=== PATIENT | female | born 1965 | race Caucasian/White ===

== ENCOUNTER 2017-08-05 15:03 | Inpatient (IN) | payer SELFPAY ==
[2017-08-05] VITALS (10 sets, daily range): BP systolic 110–132; BP diastolic 64–90; PULSE 66–70; RESP 16; TEMP 97.5–98.2; O2SAT 100
[~2017-08-05] VITALS: Ht 160 cm; Wt 56.9 kg
[2017-08-05] MEDS ORDERED: IOHEXOL 350 MG/ML 10 ML VIAL (for RAD DIAG) IVCONTRAST ONE (15:04)
[2017-08-05] MEDS ORDERED: MIDAZOLAM HCL 5 MG/ML VIAL (1 ML) ONE (15:08)
[2017-08-05] MEDS ORDERED: ceFAZolin 2 GM PREMIX 50 ML ONE (15:11)
--- NOTE | 2017-08-05 15:23 | RADRPT ---
EXAM DATE/TIME: 08/05/2017 15:05 [facility] COMPARISON: No previous studies available for comparison. INDICATIONS : Trauma alert. Patient fell down a flight of stairs. MEDICAL HISTORY : Non-responsive. SURGICAL HISTORY : Non-responsive. ENCOUNTER: Initial ACUITY: 1 day PAIN SCORE: Non-responsive. LOCATION: Bilateral pelvis. FINDINGS: Small calcification noted near the right inferior pubic ramus may reflect a small avulsion fracture. Osseous structures are otherwise intact. Joint spaces are maintained. Sacral arches are intact. Soft tissues are unremarkable. CONCLUSION: 1. Questionable subtle avulsion fracture of the right inferior pubic ramus. Yung Gonzales MD on August 05, 2017 at 15:20 Board Certified Radiologist. This report was verified electronically.
--- NOTE | 2017-08-05 15:25 | RADRPT ---
EXAM DATE/TIME: 08/05/2017 15:05 [facility] COMPARISON: No previous studies available for comparison. INDICATIONS : Trauma alert. Patient fell down a flight of stairs. MEDICAL HISTORY : Non-responsive. SURGICAL HISTORY : Non-responsive. ENCOUNTER: Initial ACUITY: 1 day PAIN SCORE: Non-responsive. LOCATION: Bilateral chest FINDINGS: ETT with tip approximately 2 cm above the kaelyn. Lungs are clear without significant pneumothorax, l eft apical cap or effusion. There is slight prominence of the right peritracheal region. Cardio media stinal contours are otherwise unremarkable. Osseous structures are intact. CONCLUSION: 1. ETT approximately 2 cm above the kaelyn. 2. Slight prominence of the right peritracheal region. 3. Otherwise, no acute abnormality. Yung Gonzales MD on August 05, 2017 at 15:22 Board Certified Radiologist. This report was verified electronically.
--- NOTE | 2017-08-05 15:33 | PD ---
HPI Chief Complaint: Trauma (Alert) Time Seen by Provider: 15:17 Travel History International Travel<30 days: No Contact w/Intl Traveler<30days: No Traveled to known affect area: No History of Present Illness HPI The patient is a approximately 53-year-old female who presents to the emergency department as a trauma alert from [facility]. According to the paramedics the patient has a history of seizures, was drinking alcohol earlier today and had a seizure and subsequently fell down 5 stairs. When EMS arrived they stated the patient's GCS was approximately 12, she was combative, therefore , was intubated in the field. The patient was intubated using succinylcholine, etomidate, and was intubated with a 7-0 endotracheal tube. The patient received Versed in route by EMS prior to arrival for sedation. Upon arrival the patient's intubated, eyes closed, nonverbal, and sedated. She had obvious injury to the forehead with a laceration as well as blood in the nares bilaterally. No obvious chest wall deformity, abdominal deformity, or deformities to the extremity is. Complete neurologic exam was unable to be completed secondary to patient's current clinical status, with administration of paralytics and sedatives. [facility] Past Medical History Narrative Medical Seizures and alcohol use according to EMS Past Surgical History Narrative Surgical Unable to obtain Social History Alcohol Use: Yes (alcohol use per EMS) Tobacco Use: No (unable to obtain) Allergies-Medications (Allergen,Severity, Reaction): Coded Allergies: No Known Allergies (Unverified , 08/05/17) Review of Systems ROS Limitations: Clinical Condition, Intubated Except as stated in HPI: all other systems reviewed are Neg Neurologic: Positive: Change in Mentation, Seizures Psychiatric: Positive: Substance Abuse (alcohol use) Physical Exam Narrative GENERAL: Intubated approximately 53-year-old female with her eyes closed, nonverbal, and large laceration noted to the forehead. SKIN: Focused skin assessment warm/dry. HEAD: 12 cm T-shaped laceration to the forehead. No obvious skull fracture. EYES: Pupils equal and round. 3 mm bilateral and reactive. ENT: Blood in both nares. Endotracheal tube in place. NECK: Trachea midline. No JVD. Cervical collar in place. CARDIOVASCULAR: Regular rate and rhythm. No murmur appreciated. RESPIRATORY: No accessory muscle use. Bilateral breath sounds via bag valve ventilation. GASTROINTESTINAL: Abdomen soft, non-tender, nondistended. No tympany noted. MUSCULOSKELETAL: No obvious deformities. No clubbing. No cyanosis. No edema. NEUROLOGICAL: Eyes closed, nonverbal, sedated. Back: No step-off over the thoracic or lumbar vertebrae. PSYCHIATRIC: Unable to obtain. Data Data Last Documented VS Vital Signs Date Time Temp Pulse Resp B/P (MAP) Pulse Ox O2 Delivery O2 Flow Rate FiO2 08/05/17 15:34 100 100 08/05/17 15:05 Ventilator 08/05/17 15:05 15.00 Orders Orders Midazolam Inj (Versed Inj) (08/05/17 15:08) Cefazolin 2 Gm Premix (Ancef 2 Gm Premix (08/05/17 15:11) I-Stat Profile (08/05/17 15:05) Complete Blood Count With Diff (08/05/17 15:05) Prothrombin Time / Inr (Pt) (08/05/17 15:05) Act Partial Throm Time (Ptt) (08/05/17 15:05) Type And Screen (08/05/17 15:05) Alcohol (Ethanol) (08/05/17 15:05) Chest, Single Ap (08/05/17 15:05) Pelvis, Ap Only (Routine) (08/05/17 15:05) Ct Brain W/O Iv Contrast(Rout) (08/05/17 15:05) Ct Cerv Spine W/O Contrast (08/05/17 15:05) Ct Abd/Pel W Iv Contrast(Rout) (08/05/17 15:05) Ct Facial Bones W/O Iv Cont (08/05/17 15:05) Iv Access Insert/Monitor (08/05/17 15:05) Ecg Monitoring (08/05/17 15:05) Oximetry (08/05/17 15:05) Oxygen Administration (08/05/17 15:05) Cefazolin 2 Gm Premix (Ancef 2 Gm Premix (08/05/17 15:45) Slqa-Tly-Baubwz (Booster) Inj (Boostrix (08/05/17 15:45) Sodium Chlor 0.9% 1000 Ml Inj (Ns 1000 M (08/05/17 15:45) Lidocaine Pf 1% Inj (Xylocaine-Mpf 1% In (08/05/17 15:34) Admit Order (Ed Use Only) (08/05/17 15:34) Rocuronium Inj (Zemuron Inj) (08/05/17 15:45) Midazolam Inj (Versed Inj) (08/05/17 15:45) Iohexol 350 Inj (Omnipaque 350 Inj) (08/05/17 15:04) Labs Laboratory Tests Test 08/05/17 15:08 White Blood Count 8.7 TH/MM3 Red Blood Count 3.60 MIL/MM3 Hemoglobin 13.1 GM/DL Bedside Hemoglobin 12.6 G/DL Hematocrit 36.6 % Bedside Hematocrit 37.0 % Mean Corpuscular Volume 101.6 FL Mean Corpuscular Hemoglobin 36.5 PG Mean Corpuscular Hemoglobin Concent 35.9 % Red Cell Distribution Width 14.9 % Platelet Count 175 TH/MM3 Mean Platelet Volume 8.7 FL Neutrophils (%) (Auto) 55.8 % Lymphocytes (%) (Auto) 29.1 % Monocytes (%) (Auto) 9.7 % Eosinophils (%) (Auto) 4.4 % Basophils (%) (Auto) 1.0 % Neutrophils # (Auto) 4.9 TH/MM3 Lymphocytes # (Auto) 2.5 TH/MM3 Monocytes # (Auto) 0.8 TH/MM3 Eosinophils # (Auto) 0.4 TH/MM3 Basophils # (Auto) 0.1 TH/MM3 CBC Comment DIFF FINAL Differential Comment Prothrombin Time 9.9 SEC Prothromb Time International Ratio 1.0 RATIO Activated Partial Thromboplast Time 23.0 SEC Bedside Sodium 140 MMOL/L Bedside Potassium 4.0 MMOL/L Bedside Chloride 104 MMOL/L Bedside Blood Urea Nitrogen 9 MG/DL Bedside Creatinine 0.9 MG/DL Bedside Glucose 95 MG/DL Ethyl Alcohol Level 188 MG/DL MDM Medical Decision Making Medical Screen Exam Complete: Yes Emergency Medical Condition: Yes Medical Record Reviewed: Yes Interpretation(s) Laboratory Tests Test 08/05/17 15:08 Bedside Hemoglobin 12.6 G/DL Bedside Hematocrit 37.0 % Bedside Sodium 140 MMOL/L Bedside Potassium 4.0 MMOL/L Bedside Chloride 104 MMOL/L Bedside Blood Urea Nitrogen 9 MG/DL Bedside Creatinine 0.9 MG/DL Bedside Glucose 95 MG/DL CT the brain unremarkable CT cervical spine unremarkable CT abdomen and pelvis unremarkable CT facial bones reveals nasal fracture Chest x-ray unremarkable Pelvis x-ray reveals questionable inferior pubic rami fracture Differential Diagnosis Differential diagnoses includes closed head injury, seizure, postictal state, intracranial hemorrhage, skull fracture, facial fracture, cervical fracture, multisystem trauma, alcohol intoxication, substance abuse. Narrative Course ATLS protocol was followed. The patient's airway, breathing, circulation were intact. The patient was intubated in the field prior to arrival and was sedated with Versed. No further information was obtainable from the patient. 2 large-bore IVs were established, labs are drawn and sent, the patient was placed on cardiac telemetry monitoring and continuous pulse oximetry monitoring. Chest x-ray and pelvis x-ray were obtained. Endotracheal tube was withdrawn 1 cm and positions. The patient was log rolled off the backboard and the back was inspected. Tetanus shot was updated. The patient received Ancef intravenously. The patient was administered Versed as needed for sedation with 50 mg of rocuronium for CT. The laceration was repaired by the mid-level provider, please refer to the procedure note. The patient will be admitted to the intensive surgical care unit under the care of Dr. Perez. The patient will receive Cerebyx 1 g intravenously for seizures. Trauma team was called including Dr. Perez at 1411 Level I trauma was called at 1411 Physician Communication Physician Communication The patient will be admitted to the trauma surgeon, Dr. Perez, and intensive surgical care unit. Diagnosis Primary Impression: Closed head injury Qualified Codes: S09.90XA - Unspecified injury of head, initial encounter Additional Impression: Laceration of forehead Qualified Codes: S01.81XA - Laceration without foreign body of other part of head, initial encounter Admitting Information Admitting Physician Requests: Admit Condition: Serious Jay Wasserman MD Aug 05, 2017 15:33
[2017-08-05] MEDS ORDERED: LIDOCAINE HCL 1% PF 30 ML VIAL ONE (15:34)
[2017-08-05 15:37] LABS: PROTHROMBIN TIME - PATIENT 9.9 SEC (9.8-11.6)
[2017-08-05 15:38] LABS: AUTOMATED NEUTROPHIL # 4.9 TH/MM3 (1.8-7.7); BASOPHIL # 0.1 TH/MM3 (0-0.2); EOSINOPHIL # 0.4 TH/MM3 (0-0.4); EOSINOPHIL % 4.4 % (0.0-4.0); HEMATOCRIT 36.6 % (35.0-46.0); HEMOGLOBIN 13.1 GM/DL (11.6-15.3); LYMPH % 29.1 % (9.0-44.0); LYMPHOCYTE # 2.5 TH/MM3 (1.0-4.8); MEAN CELL VOLUME 101.6 FL (80.0-100.0); MEAN CORPUSCULAR HEMOGLOBIN 36.5 PG (27.0-34.0); MEAN CORPUSCULAR HGB CONC 35.9 % (32.0-36.0); MEAN PLATELET VOLUME 8.7 FL (7.0-11.0); MONO % 9.7 % (0.0-8.0); MONOCYTE # 0.8 TH/MM3 (0-0.9); NEUT % 55.8 % (16.0-70.0); PLATELET COUNT 175 TH/MM3 (150-450); RED CELL DISTRIBUTION WIDTH 14.9 % (11.6-17.2); WHITE BLOOD COUNT 8.7 TH/MM3 (4.0-11.0)
--- NOTE | 2017-08-05 15:40 | RADRPT ---
EXAM DATE/TIME: 08/05/2017 15:19 [facility] COMPARISON: No previous studies available for comparison. INDICATIONS : Trauma alert; fall with seizure-like activity. RADIATION DOSE: 56.35 CTDIvol (mGy) MEDICAL HISTORY : Non-responsive. SURGICAL HISTORY : Non-responsive. ENCOUNTER: Initial ACUITY: 1 day PAIN SCALE: Non-responsive LOCATION: cranial TECHNIQUE: Multiple contiguous axial images were obtained of the head. Using automated exposure control and adj ustment of the mA and/or kV according to patient size, radiation dose was kept as low as reasonably a chievable to obtain optimal diagnostic quality images. DICOM format image data is available electro nically for review and comparison. FINDINGS: CEREBRUM: The ventricles are normal for age. No evidence of midline shift, mass lesion, hemorrhage or acute in farction. No extra-axial fluid collections are seen. POSTERIOR FOSSA: The cerebellum and brainstem are intact. The 4th ventricle is midline. The cerebellopontine angle i s unremarkable. EXTRACRANIAL: The visualized portion of the orbits is intact. Bilateral maxillary sinus and ethmoid fluid/mucoperio steal thickening in this intubated patient. SKULL: The calvaria is intact. No evidence of skull fracture. CONCLUSION: 1. No acute intracranial normality. Yung Gonzales MD on August 05, 2017 at 15:35 Board Certified Radiologist. This report was verified electronically.
[2017-08-05] MEDS ORDERED: ETOMIDATE 20 MG/10 ML VIAL ONE (15:41)
[2017-08-05] MEDS ORDERED: DIPHTH/TETANUS/ACEL PERTUSSIS (BOOSTER) 0.5 ML VIAL/PFS IM ONE (15:45)
[2017-08-05] MEDS ORDERED: FOSPHENYTOIN SODIUM 500 MG PE/10 ML VIAL IV ONE (15:45)
[2017-08-05] MEDS ORDERED: SODIUM CHLOR 0.9% 1000 ML INJ 1,000 ML IV SCH ×2 (15:45→15:48)
[2017-08-05] MEDS ORDERED: ROCURONIUM INJ 50 MG/5 ML VIAL IV ONE (15:45)
[2017-08-05] MEDS ORDERED: ceFAZolin 2 GM PREMIX 50 ML IV ONE (15:45)
[2017-08-05] MEDS ORDERED: MIDAZOLAM HCL 5 MG/5 ML VIAL IV ONE (15:45)
[2017-08-05] MEDS ORDERED: FOSPHENYTOIN INJ 1,000 MGPE in SODIUM CHLORIDE 0.9% INJ 50 ML IV ONE (15:45)
--- NOTE | 2017-08-05 15:53 | RADRPT ---
EXAM DATE/TIME: 08/05/2017 15:19 [facility] COMPARISON: No previous studies available for comparison. INDICATIONS : Trauma alert; fall with seizure-like activity. RADIATION DOSE: 28.35 CTDIvol (mGy) MEDICAL HISTORY : Non-responsive. SURGICAL HISTORY : Non-responsive. ENCOUNTER: Initial ACUITY: 1 day PAIN SCORE: Non-responsive LOCATION: facial TECHNIQUE: Volumetric scanning of the facial bones was performed. Using automated exposure control and adjustme nt of the mA and/or kV according to patient size, radiation dose was kept as low as reasonably achiev able to obtain optimal diagnostic quality images. DICOM format image data is available electronicall y for review and comparison. FINDINGS: ORBITS: The orbital and infraorbital osseous structures are intact. The retroconal structures have a normal configuration. No radiopaque foreign bodies are seen. NASAL BONE: Comminuted nasal bone fracture extending along the anterior nasal spine. ZYGOMATIC ARCHES: Symmetric without evidence of fracture. SINUSES: Opacification of the ethmoid air cells. Nical [place] thickening of the macular sinuses bilaterally. Sphenoid sinuses and frontal sinuses are clear. NASAL CAVITY: Suspect fracture of the nasal bony septum.The lacrimal ducts are intact. SOFT TISSUES: No radiopaque foreign bodies seen. Laceration in the mid face region/inferior scalp. INTRACRANIAL: No intracranial air seen. CRIBIFORM PLATE: Grossly intact. CONCLUSION: 1. Comminuted nasal bone fracture extending along the anterior nasal spine with suspected fracture of the bony nasal septum. 2. Large anterior mid face/scalp laceration. Yung Gonzales MD on August 05, 2017 at 15:46 Board Certified Radiologist. This report was verified electronically.
--- NOTE | 2017-08-05 15:55 | RADRPT ---
EXAM DATE/TIME: 08/05/2017 15:22 [facility] COMPARISON: No previous studies available for comparison. INDICATIONS : Trauma alert; fall with seizure-like activity. RADIATION DOSE: 24.27 CTDIvol (mGy) MEDICAL HISTORY : Non-responsive. SURGICAL HISTORY : Non-responsive. ENCOUNTER: Initial ACUITY: 1 day PAIN SCALE: Non-responsive LOCATION: neck TECHNIQUE: Volumetric scanning of the cervical spine was performed. Multiplanar reconstructions in the sagittal, coronal and oblique axial planes were performed. Using automated exposure control and adjustment o f the mA and/or kV according to patient size, radiation dose was kept as low as reasonably achievable to obtain optimal diagnostic quality images. DICOM format image data is available electronically f or review and comparison. FINDINGS: Vertebral body heights are maintained. Osseous structures are intact without evidence for acute bony fracture. Dens is intact. Sagittal alignment is maintained. There is a normal C1-2 relationship. Face ts are normally aligned. There is no significant prevertebral soft tissue hematoma. No significant ce rvical adenopathy or gross mass. Degenerative spondylosis of the lower cervical spine with disc space and osteophyte formation most prominently at C5-7. Associated bony neural foraminal stenosis at thes e levels. There is a calcified nodule in the right thyroid lobe. Patient is intubated. Visualized vaughn g apices are clear without pneumothorax. CONCLUSION: 1. No acute fracture or subluxation. 2. Degenerative spondylosis of the lower cervical spine, most prominently at C5-7. Yung Gonzales MD on August 05, 2017 at 15:51 Board Certified Radiologist. This report was verified electronically.
[2017-08-05] MEDS ORDERED: Post-op Orders (for Pharmacy) XX ONE (16:00)
[2017-08-05] MEDS ORDERED: PANTOPRAZOLE SODIUM 40 MG VIAL IV PUSH SCH (16:00)
[2017-08-05] MEDS ORDERED: PROPOFOL 1000 MG/100 ML INJ 100 ML IV PRN (16:00)
[2017-08-05] MEDS ORDERED: ONDANSETRON HCL 4 MG/2 ML VIAL IV PUSH PRN ×2 (16:00→19:30)
[2017-08-05] MEDS ORDERED: SODIUM CHLORIDE 0.9% FLUSH 10 ML FLUSH IV FLUSH PRN ×2 (16:00→19:30)
[2017-08-05] MEDS ORDERED: NALOXONE HCL 0.4 MG/ML AMP IV PUSH PRN (16:00)
--- NOTE | 2017-08-05 16:01 | RADRPT ---
EXAM DATE/TIME: 08/05/2017 15:28 [facility] COMPARISON: No previous studies available for comparison. INDICATIONS : Trauma alert; fall with seizure-like activity. IV CONTRAST: 80 cc Omnipaque 350 (iohexol) IV ORAL CONTRAST: No oral contrast ingested. RADIATION DOSE: 28.35 CTDIvol (mGy) MEDICAL HISTORY : Non-responsive. SURGICAL HISTORY : Non-responsive. ENCOUNTER: Initial ACUITY: 1 day PAIN SCALE: Non-responsive LOCATION: lower quadrant TECHNIQUE: Volumetric scanning of the abdomen and pelvis was performed. Using automated exposure control and ad justment of the mA and/or kV according to patient size, radiation dose was kept as low as reasonably achievable to obtain optimal diagnostic quality images. DICOM format image data is available electro nically for review and comparison. FINDINGS: LOWER LUNGS: Minimal bibasilar opacities likely reflecting atelectasis. LIVER: Homogeneous density without lesion. There is no dilation of the biliary tree. No calcified gallston es. SPLEEN: Normal size without lesion. PANCREAS: Within normal limits. KIDNEYS: Normal in size and shape. There is no mass, stone or hydronephrosis. ADRENAL GLANDS: Within normal limits. VASCULAR: There is no aortic aneurysm. BOWEL/MESENTERY: Colon is completely decompressed which can accentuate the colon wall. There is slight asymmetrical co lonic wall prominence in the ascending colon near the hepatic flexure. There is also trace free fluid in the left lower quadrant adjacent the sigmoid colon. Bowel otherwise appears unremarkable. ABDOMINAL WALL: Small fat-containing anterior abdominal hernia. RETROPERITONEUM: There is no lymphadenopathy. BLADDER: No wall thickening or mass. REPRODUCTIVE: Within normal limits. INGUINAL: There is no lymphadenopathy or hernia. MUSCULOSKELETAL: Osseous structures appear intact without evidence for acute bony fracture. Mild degenerative changes of the lower lumbar spine. CONCLUSION: 1. Very trace free fluid in the left lower quadrant adjacent the sigmoid colon. 2. Otherwise, no definitive traumatic injury in the abdomen or pelvis. 3. There is slight asymmetry of the colonic wall in the ascending near the hepatic flexure. This is n onspecific given degree of colonic distention. Consider colonoscopy on an outpatient basis particular ly if patient has not had recent colonoscopy. Alternatively, repeat CT examination with oral contrast may be performed. Yung Gonzales MD on August 05, 2017 at 15:53 Board Certified Radiologist. This report was verified electronically.
--- NOTE | 2017-08-05 16:23 | PD ---
Physical Exam Date Seen by Provider: Aug 05, 2017 Time Seen by Provider: 16:20 Narrative Trauma alert that presents to the ED for evaluation of trauma. I was asked by trauma surgeon to repair a laceration to the head. Please refer to his note. Data Data Orders Orders Midazolam Inj (Versed Inj) (08/05/17 15:08) Cefazolin 2 Gm Premix (Ancef 2 Gm Premix (08/05/17 15:11) I-Stat Profile (08/05/17 15:05) Complete Blood Count With Diff (08/05/17 15:05) Prothrombin Time / Inr (Pt) (08/05/17 15:05) Act Partial Throm Time (Ptt) (08/05/17 15:05) Type And Screen (08/05/17 15:05) Alcohol (Ethanol) (08/05/17 15:05) Chest, Single Ap (08/05/17 15:05) Pelvis, Ap Only (Routine) (08/05/17 15:05) Ct Brain W/O Iv Contrast(Rout) (08/05/17 15:05) Ct Cerv Spine W/O Contrast (08/05/17 15:05) Ct Abd/Pel W Iv Contrast(Rout) (08/05/17 15:05) Ct Facial Bones W/O Iv Cont (08/05/17 15:05) Iv Access Insert/Monitor (08/05/17 15:05) Ecg Monitoring (08/05/17 15:05) Oximetry (08/05/17 15:05) Oxygen Administration (08/05/17 15:05) Cefazolin 2 Gm Premix (Ancef 2 Gm Premix (08/05/17 15:45) Zyus-Tnk-Kcxrjq (Booster) Inj (Boostrix (08/05/17 15:45) Sodium Chlor 0.9% 1000 Ml Inj (Ns 1000 M (08/05/17 15:45) Lidocaine Pf 1% Inj (Xylocaine-Mpf 1% In (08/05/17 15:34) Admit Order (Ed Use Only) (08/05/17 15:34) Rocuronium Inj (Zemuron Inj) (08/05/17 15:45) Midazolam Inj (Versed Inj) (08/05/17 15:45) Iohexol 350 Inj (Omnipaque 350 Inj) (08/05/17 15:04) Labs Laboratory Tests Test 08/05/17 15:08 White Blood Count 8.7 TH/MM3 Red Blood Count 3.60 MIL/MM3 Hemoglobin 13.1 GM/DL Bedside Hemoglobin 12.6 G/DL Hematocrit 36.6 % Bedside Hematocrit 37.0 % Mean Corpuscular Volume 101.6 FL Mean Corpuscular Hemoglobin 36.5 PG Mean Corpuscular Hemoglobin Concent 35.9 % Red Cell Distribution Width 14.9 % Platelet Count 175 TH/MM3 Mean Platelet Volume 8.7 FL Neutrophils (%) (Auto) 55.8 % Lymphocytes (%) (Auto) 29.1 % Monocytes (%) (Auto) 9.7 % Eosinophils (%) (Auto) 4.4 % Basophils (%) (Auto) 1.0 % Neutrophils # (Auto) 4.9 TH/MM3 Lymphocytes # (Auto) 2.5 TH/MM3 Monocytes # (Auto) 0.8 TH/MM3 Eosinophils # (Auto) 0.4 TH/MM3 Basophils # (Auto) 0.1 TH/MM3 CBC Comment DIFF FINAL Differential Comment Prothrombin Time 9.9 SEC Prothromb Time International Ratio 1.0 RATIO Activated Partial Thromboplast Time 23.0 SEC Bedside Sodium 140 MMOL/L Bedside Potassium 4.0 MMOL/L Bedside Chloride 104 MMOL/L Bedside Blood Urea Nitrogen 9 MG/DL Bedside Creatinine 0.9 MG/DL Bedside Glucose 95 MG/DL Ethyl Alcohol Level 188 MG/DL [facility] Medical Record Reviewed: Yes Supervised Visit with KATRIN: No Procedures Procedure Narrative LACERATION LOCATION: forehead LENGTH: 10 cm T shaped NUMBER OF STITCHES/ETHAN: 30 sutures REPAIR: The area of the laceration was prepped with Betadine and sterilely draped. The laceration was infiltrated with 1% Xylocaine. The wound was copiously irrigated and explored without evidence of foreign body, tendon injury or neurovascular injury. The wound was closed using 4-0 Prolene. This was a 1 layer repair. A sterile dressing was applied. The patient was advised to keep the dressing clean and dry. Patient tolerated the procedure well. LACERATION LOCATION: nose LENGTH: 1 cm NUMBER OF STITCHES/ETHAN: 4 sutures REPAIR: The area of the laceration was prepped with Betadine and sterilely draped. The laceration was infiltrated with 1% Xylocaine. The wound was copiously irrigated and explored without evidence of foreign body, tendon injury or neurovascular injury. The wound was closed using 4-0 Prolene. This was a 1 layer repair. A sterile dressing was applied. The patient was advised to keep the dressing clean and dry. Patient tolerated the procedure well. Diagnosis Primary Impression: Closed head injury Qualified Codes: S09.90XA - Unspecified injury of head, initial encounter Additional Impression: Laceration of forehead Qualified Codes: S01.81XA - Laceration without foreign body of other part of head, initial encounter Condition: Serious Michael Andrews Aug 05, 2017 16:22
--- NOTE | 2017-08-05 16:42 | MH ---
cc: RUTH GO MD DATE OF ADMISSION 08/05/2017 ADMISSION DIAGNOSIS Fall, head injury, seizures. HISTORY OF PRESENT ILLNESS This 53-year-old female is being transferred from [facility] to . Apparently, the patient seized and then fell about five steps, hit her forehead. On the scene, she was unresponsive and her Anthony coma scale came up some, but I am not sure about actual numerical value of it. One way or the other, the patient was intubated and ventilated in the field and arrives here on a spinal board with C-collar in place ventilated. PAST MEDICAL HISTORY Known is that of seizures, according to the medics. PAST SURGICAL HISTORY Unknown MEDICATIONS Unknown ALLERGIES Unknown SOCIAL HISTORY Medics state that her friend confirmed that she was drunk at the time of the fall. PHYSICAL EXAMINATION GENERAL: A 53-year-old female. HEENT: Normocephalic. Trauma to the head consisting of a T-shaped laceration over the forehead with slightly elevated skin flaps, but skull underneath appears to be intact. No hemotympanum on either side, however, there is blood in the left ear running from the head down. Nares are full of blood. Pupils are equal, poorly reactive. Extraocular muscles cannot be tested. Oral cavity is intact. No injuries. Tongue is intact. NECK: C-collar is in place. Bilateral carotid pulses. No bruits. No signs of trauma to the neck on external exam. CHEST: Bilateral breath sounds. As above-noted, the patient is fully intubated. HEART: Regular rhythm. Hemodynamically, she is stable. Pressure is 140/90. ABDOMEN: Appears to be soft. Active bowel sounds. No rebound or guarding. No masses. No signs of trauma to the abdomen. PELVIS: No signs of trauma to the pubis Pelvis appears to be stable. Pubic film reveals some sort of maybe deformity of the pubis, but I cannot correlate that clinically in any way. EXTREMITIES: The patient has bilateral palpable femoral, popliteal, dorsalis pedis and posterior tibial pulses. Bilateral brachial, ulnar and radial pulses. She has blood over her hands, but I believe this is from her face basically coming down. BACK: The patient is log-rolled to her back. No signs of trauma to the back. NEUROLOGIC: The patient is now intubated, ventilated. On arrival, she was moving all four extremities and, in order to perform CAT scan, was given vercuronium and Versed. Exam at this point is T5. The patient was taken to the CT scan for additional studies after plain films were performed. Endotracheal tube position was readjusted. The patient was resuscitated according to trauma principals. The forehead laceration was repaired by the emergency room PA and the patient was then taken to the ICU for further care. In addition, the patient was given Cerebyx in the emergency room and we will continue on this in the ICU. Appropriate services are consulted. Ruth RAMÍREZ /3:43 PM /4:27 PM
[2017-08-05] MEDS ORDERED: PROPOFOL 500 MG/50 ML INJ 50 ML ONE (16:55)
[2017-08-05] MEDS ORDERED: RASS Change Order XX ONE (17:15)
[2017-08-05] MEDS ORDERED: PROPOFOL 1000 MG/100 ML IV PRN (17:15)
--- NOTE | 2017-08-05 18:50 | PD.CONS ---
[facility] Service Critical Care Medicine Consult Requested By Dr. Perez Reason for Consult Critical care medicine management Primary Care Physician Unknown History of Present Illness This is a 53-year-old female. Date of admission 08/05/2017. Date of consultation 08/05/2017. Past medical history is unknown. Patient is a transfer as a trauma from [facility]. Per records and review of traumas H&P, patient had a seizure and fell down flight of 5 steps. She had a laceration to her forehead. She was confused and was emergently intubated in the field after receiving a lidocaine drip, 30 mg etomidate, 60 mg succinylcholine and 14 mg of midazolam. She was transported to [facility] ED for further evaluation and treatment. Pertinent imaging CT brain -bilateral maxillary sinusitis left ethmoid and frontal fluid levels Maxillofacial -comminuted nasal bone fracture extending along the anterior spine. Fracture of the bony nasal septum. CT C-spine -degenerative spondylosis C5 through C7 CT abdomen/pelvis -6 tiny left lower quadrant ascites. Abnormality at the hepatic flexure anteriorly. Recommended outpatient colonoscopy or CT with abdomen and pelvis with contrast Pelvis -possible pubic ramus fracture/right inferior Chest x-ray -no pneumothorax. Patient was loaded with fosphenytoin 1 g. Laboratories revealed elevated MCV only. Alcohol level was 188. Received DTaP 0.5 mg IM 1. Sutures to the forehead in T formation and nasal bridge were done by PA in the ED. Review of Systems ROS Limitations: Intoxication, Intubated Past Family Social History Allergies: Coded Allergies: No Known Allergies (Unverified , 08/05/17) Past Medical History Unknown Past Surgical History Unknown Reported Medications Unknown Active Ordered Medications Reviewed in EMR Family History Unknown Social History Alcohol is in her system. Unknown tobacco or illicit drug use. Physical Exam Vital Signs Vital Signs Date Time Temp Pulse Resp B/P (MAP) Pulse Ox O2 Delivery O2 Flow Rate FiO2 08/05/17 18:29 100 50 08/05/17 16:00 97.5 66 16 132/90 (104) 100 08/05/17 15:34 100 100 08/05/17 15:15 100 100 08/05/17 15:05 100 Ventilator 100 08/05/17 15:05 100 15.00 100 Physical Exam GENERAL: 53-year-old female currently orotracheally intubated with OG tube SKIN: Warm and dry. Lacerations and tissue to afford sutured along with nasal bridge. T-shaped laceration to forehead currently sutured HEAD: Normocephalic. EYES: Pupils equal and round about 4 mm bilaterally and reactive no scleral icterus. No injection or drainage. ENT: Drying blood in left external ear canal. Positive blood in nares bilaterally. Not actively bleeding. Orotracheally intubated with OG tube in place NECK: Trachea midline. No JVD. CARDIOVASCULAR: Regular rate and rhythm. S1, S2. No S4. RESPIRATORY: No accessory muscle use. Clear to auscultation. Breath sounds equal bilaterally. GASTROINTESTINAL: Abdomen soft, non-tender, nondistended. Hypoactive bowel sounds are appreciated MUSCULOSKELETAL: Extremities without significant peripheral edema. No obvious deformities. NEUROLOGICAL: Arousable on the ventilator moving all 4 extremities spontaneously but not to command. Laboratory Laboratory Tests Test 08/05/17 15:08 White Blood Count 8.7 Red Blood Count 3.60 Hemoglobin 13.1 Bedside Hemoglobin 12.6 Hematocrit 36.6 Bedside Hematocrit 37.0 Mean Corpuscular Volume 101.6 Mean Corpuscular Hemoglobin 36.5 Mean Corpuscular Hemoglobin Concent 35.9 Red Cell Distribution Width 14.9 Platelet Count 175 Mean Platelet Volume 8.7 Neutrophils (%) (Auto) 55.8 Lymphocytes (%) (Auto) 29.1 Monocytes (%) (Auto) 9.7 Eosinophils (%) (Auto) 4.4 Basophils (%) (Auto) 1.0 Neutrophils # (Auto) 4.9 Lymphocytes # (Auto) 2.5 Monocytes # (Auto) 0.8 Eosinophils # (Auto) 0.4 Basophils # (Auto) 0.1 CBC Comment DIFF FINAL Differential Comment Prothrombin Time 9.9 Prothromb Time International Ratio 1.0 Activated Partial Thromboplast Time 23.0 Bedside Sodium 140 Bedside Potassium 4.0 Bedside Chloride 104 Bedside Blood Urea Nitrogen 9 Bedside Creatinine 0.9 Bedside Glucose 95 Ethyl Alcohol Level 188 Result Diagram: 08/05/[address] brain -bilateral maxillary sinusitis left ethmoid and frontal fluid levels Maxillofacial -comminuted nasal bone fracture extending along the anterior spine. Fracture of the bony nasal septum. CT C-spine -degenerative spondylosis C5 through C7 CT abdomen/pelvis -6 tiny left lower quadrant ascites. Abnormality at the hepatic flexure anteriorly. Recommended outpatient colonoscopy or CT with abdomen and pelvis with contrast Pelvis -possible pubic ramus fracture/right inferior Chest x-ray -no pneumothorax. Septic Shock Reassessment Septic shock perfusion: reassessment completed Assessment and Plan Assessment and Plan Neuro/Psych: TBI Seizure disorder NOS EtOH Bony nasal septum fracture CT brain revealed bilateral maxillary sinusitis/ethmoid and frontal fluid levels. CT maxillofacial revealed comminuted nasal bone fracture on the anterior spine with fracture of the bony nasal septum Currently on propofol/fentanyl and midazolam drips for sedation/analgesia while intubated Goal of RASS -2 Vitamin bag consisting of thiamine, folate and multivitamin daily 3 days Monitor for DT Acetaminophen 650 mg by 2 every 6 hours as needed fever Lorazepam 2 mg every hour as indicated for breakthrough seizures MRI brain ordered Neurology consultation Currently on levetiracetam 500 mg IV twice daily and phenytoin 200 mg twice daily. Check phenytoin level in a.m. Load with 1 g fosphenytoin in ED Facial laceration sutured in ED. Received tetanus toxoid 0.5 mg IM 1 CV: Currently on normal saline at 100 cc an hour Not requiring vasopressors and/or antihypertensives Resp: Acute respiratory failure [facility] 16/450/06/23/50 Ventilator bundle As needed albuterol aerosols every 2 hours as needed dyspnea Spontaneous breathing trials when clinically indicated Follow-up ABG in a.m. with chest x-ray GI: OGT to LIWS Pantoprazole for GI prophylaxis Docusate sodium/senna 1 tablet twice daily for bowel regimen : Trivedi catheter has been placed for accurate I's and O's in a critically ill patient Endo: Sliding scale insulin with Novulin R with Accu-Cheks every 6 hours to maintain euglycemia/low regimen Renal: Creatinine currently within normal limits Monitor urine output Accurate I's and O's Heme: Macrocytosis Hemoglobin and coags within normal limits. Recheck CBC in a.m. ID: Monitor for infection Receive cefazolin 2 g IV 1 and ED MSK: PT evaluate and treat FEN: Replace electrolytes per ICU electrolyte protocol Access -Utilize peripheral IV. Central line if indicated Prophylaxis - GI -pantoprazole -DVT -SCD/enoxaparin Level 2 consult Code Status Full code Discussed Condition With Dr. Perez. Care plan discussed and all questions answered. Asim Ramirez MD Aug 05, 2017 18:50
[2017-08-05] MEDS ORDERED: fentaNYL DRIP 250 ML IV PRN (19:15)
[2017-08-05] MEDS ORDERED: MIDAZOLAM 100 MG/100 ML INJ 100 ML IV PRN (19:15)
[2017-08-05] MEDS ORDERED: POTASSIUM PHOSPHATE INJ 30 MMOL in SODIUM CHLOR 0.9% 250 ML INJ 250 ML IV PRN (19:30)
[2017-08-05] MEDS ORDERED: CHLORHEXIDINE GLUCONATE 2 % 1 PACK (2 CLOTHS) TOP PRN (19:30)
[2017-08-05] MEDS ORDERED: GLUCAGON 1 MG/ML VIAL OTHER PRN (19:30)
[2017-08-05] MEDS ORDERED: DEXTROSE 50% IN WATER 50 ML VIAL(D50) IV PUSH PRN (19:30)
[2017-08-05] MEDS ORDERED: ACETAMINOPHEN 325 MG TAB PO PRN (19:30)
[2017-08-05] MEDS ORDERED: POTASSIUM CHLOR 40 MEQ PREMIX 100 ML IV PRN ×2 (19:30)
[2017-08-05] MEDS ORDERED: POTASSIUM PHOSPHATE MONOBASIC 500 MG TAB PO/TUBE PRN (19:30)
[2017-08-05] MEDS ORDERED: SODIUM PHOSPHATE INJ 30 MMOL in SODIUM CHLOR 0.9% 250 ML INJ 240 ML IV PRN (19:30)
[2017-08-05] MEDS ORDERED: MAGNESIUM OXIDE 400 MG TAB PO PRN (19:30)
[2017-08-05] MEDS ORDERED: MAGNESIUM SULFATE INJ 4 GM in SODIUM CHLORIDE 0.9% INJ 92 ML IV PRN (19:30)
[2017-08-05] MEDS ORDERED: POTASSIUM CHLORIDE 25 MEQ EFFERVESCENT TAB PO PRN (19:30)
[2017-08-05] MEDS ORDERED: POTASSIUM PHOSPHATE MONOBASIC 500 MG TAB PO PRN (19:30)
[2017-08-05] MEDS ORDERED: MISCELLANEOUS NURSING INFORMATION XX SCH (19:30)
[2017-08-05] MEDS ORDERED: MAGNESIUM SULFATE INJ 2 GM in SODIUM CHLORIDE 0.9% INJ 96 ML IV PRN (19:30)
[2017-08-05] MEDS ORDERED: POTASSIUM CHLOR 20 MEQ PREMIX 100 ML IV PRN ×2 (19:30)
[2017-08-05] MEDS ORDERED: LORazepam 2 MG/ML VIAL IV PUSH PRN (19:30)
[2017-08-05] MEDS ORDERED: CHLORHEXIDINE 0.12% (ORAL KIT) 15 ML CUP MT SCH (20:00)
[2017-08-05] MEDS: CHLORHEXIDINE 0.12% (ORAL KIT) 15 ML CUP MT SCH (20:32)
[2017-08-05] MEDS: FOSPHENYTOIN SODIUM 100 MG PE/2 ML VIAL IV SCH (20:33)
[2017-08-05] MEDS: levETIRAcetam INJ 500 MG in SODIUM CHLORIDE 0.9% INJ 100 ML IV SCH (20:33)
[2017-08-05] MEDS: SODIUM CHLORIDE 0.9% FLUSH 10 ML FLUSH IV FLUSH SCH (20:34)
[2017-08-05] MEDS: MAGNESIUM HYDROXIDE SUSP 30 ML CUP PO SCH (20:34)
[2017-08-05] MEDS: DOCUSATE SODIUM 50 MG/SENNA 8.6 MG TAB PO SCH (20:34)
[2017-08-05] MEDS ORDERED: SODIUM CHLORIDE 0.9% FLUSH 10 ML FLUSH IV FLUSH SCH (21:00)
[2017-08-05] MEDS ORDERED: MULTIVITAMIN INJ 10 ML, THIAMINE INJ 100 MG, FOLIC ACID INJ 1 MG in SODIUM CHLORID 0.9%... IV ONE (21:00)
[2017-08-05] MEDS: ARTIFICIAL TEARS OPTH SOLN 15 ML BTL EACH EYE SCH (22:23)
[2017-08-06] VITALS (19 sets, daily range): BP systolic 90–123; BP diastolic 47–71; PULSE 65–92; RESP 16–21; TEMP 97.5–99.1; O2SAT 95–100
[2017-08-06 01:46] LABS: BILIRUBIN, URINE NEG (NEG); BLOOD, URINE NEG (NEG); GLUCOSE,URINE NEG (NEG); KETONE, URINE NEG (NEG); NITRITE,URINE NEG (NEG); SQUAMOUS EPITHELIAL CELL URINE 3 /hpf (0-5); URINE COLOR LIGHT-YELLOW (YELLW/STRAW); URINE LEUKOCYTE ESTERASE NEG (NEG)
[2017-08-06] MEDS: PROPOFOL 1000 MG/100 ML INJ 100 ML IV PRN ×2 (02:44→09:25)
[2017-08-06] MEDS: CHLORHEXIDINE GLUCONATE 2 % 1 PACK (2 CLOTHS) TOP SCH (03:05)
--- NOTE | 2017-08-06 04:28 | RADRPT ---
EXAM DATE/TIME: 08/06/2017 03:08 [facility] COMPARISON: CHEST SINGLE AP, August 05, 2017, 15:05. INDICATIONS : Evaluate for pneumonia- Respiratory failure MEDICAL HISTORY : None. SURGICAL HISTORY : None. ENCOUNTER: Subsequent ACUITY: 2 days PAIN SCORE: Non-responsive. LOCATION: Bilateral chest FINDINGS: A single view of the chest demonstrates a no focal consolidation or effusion. Heart size normal. Endo tracheal tube and nasogastric tube in good position. CONCLUSION: 1. Endotracheal tube and nasogastric tube in good position. No new consolidation. Jac Gaspar MD on August 06, 2017 at 4:26 Board Certified Radiologist. This report was verified electronically.
[2017-08-06] MEDS: RESP: ALBUTEROL 2.5 MG/3 ML NEB (PRN) INH ×2 (04:30→09:02)
[2017-08-06] MEDS: ARTIFICIAL TEARS OPTH SOLN 15 ML BTL EACH EYE SCH ×3 (05:18→22:00)
[2017-08-06 05:48] LABS: AUTOMATED NEUTROPHIL # 7.7 TH/MM3 (1.8-7.7); BASOPHIL # 0.1 TH/MM3 (0-0.2); BASOPHIL % 0.5 % (0.0-2.0); EOSINOPHIL # 0.4 TH/MM3 (0-0.4); HEMATOCRIT 37.2 % (35.0-46.0); HEMOGLOBIN 12.7 GM/DL (11.6-15.3); LYMPH % 23.1 % (9.0-44.0); LYMPHOCYTE # 2.8 TH/MM3 (1.0-4.8); MEAN CELL VOLUME 103.3 FL (80.0-100.0); MEAN CORPUSCULAR HEMOGLOBIN 35.2 PG (27.0-34.0); MEAN PLATELET VOLUME 8.5 FL (7.0-11.0); MONO % 8.6 % (0.0-8.0); NEUT % 64.8 % (16.0-70.0); PLATELET COUNT 157 TH/MM3 (150-450)
[2017-08-06] MEDS: INSULIN NovoLIN REGULAR SUPPLEMENTAL SCALE SQ SCH ×4 (05:54→18:00)
[2017-08-06 06:26] LABS: BICARBONATE 24.6 MEQ/L (21.0-32.0); CALCIUM 7.4 MG/DL (8.5-10.1); CREATININE 0.5 MG/DL (0.50-1.00); MAGNESIUM 1.7 MG/DL (1.5-2.5); PHENYTOIN (DILANTIN) 17.7 MCG/ML (10.0-20.0); PHOSPHORUS 3.5 MG/DL (2.5-4.9)
[2017-08-06] MEDS: CHLORHEXIDINE 0.12% (ORAL KIT) 15 ML CUP MT SCH ×2 (08:00→20:00)
[2017-08-06] MEDS ORDERED: POTASSIUM CHLORIDE 20 MEQ PWD PACKET NG ONE (08:00)
[2017-08-06] MEDS: DOCUSATE SODIUM 50 MG/SENNA 8.6 MG TAB PO SCH ×2 (09:00→22:50)
[2017-08-06] MEDS: SODIUM CHLORIDE 0.9% FLUSH 10 ML FLUSH IV FLUSH SCH ×2 (09:00→21:00)
[2017-08-06] MEDS: MAGNESIUM HYDROXIDE SUSP 30 ML CUP PO SCH ×2 (09:24→22:50)
[2017-08-06] MEDS: MAGNESIUM SULFATE 1 GM PREMIX 100 ML IV SCH ×2 (09:25→11:49)
[2017-08-06] MEDS: levETIRAcetam INJ 500 MG in SODIUM CHLORIDE 0.9% INJ 100 ML IV SCH ×2 (09:26→22:51)
[2017-08-06] MEDS: FOSPHENYTOIN SODIUM 100 MG PE/2 ML VIAL IV SCH ×2 (09:26→22:51)
--- NOTE | 2017-08-06 09:49 | HHI.CCPN ---
Subjective Remarks/Hospital Course This is a 53-year-old female. Date of admission 08/05/2017. Date of consultation 08/05/2017. Past medical history is unknown. Patient is a transfer as a trauma from [facility]. Per records and review of traumas H&P, patient had a seizure and fell down flight of 5 steps. She had a laceration to her forehead. She was confused and was emergently intubated in the field after receiving a lidocaine drip, 30 mg etomidate, 60 mg succinylcholine and 14 mg of midazolam. She was transported to [facility] ED for further evaluation and treatment. Pertinent imaging CT brain -bilateral maxillary sinusitis left ethmoid and frontal fluid levels Maxillofacial -comminuted nasal bone fracture extending along the anterior spine. Fracture of the bony nasal septum. CT C-spine -degenerative spondylosis C5 through C7 CT abdomen/pelvis -6 tiny left lower quadrant ascites. Abnormality at the hepatic flexure anteriorly. Recommended outpatient colonoscopy or CT with abdomen and pelvis with contrast Pelvis -possible pubic ramus fracture/right inferior Chest x-ray -no pneumothorax. Patient was loaded with fosphenytoin 1 g. Laboratories revealed elevated MCV only. Alcohol level was 188. Received DTaP 0.5 mg IM 1. Sutures to the forehead in T formation and nasal bridge were done by PA in the ED. Subjective 08/06: Arousable movement ventilator 50 mcg/kg per minute of propofol and 50 micrograms an hour fentanyl. MRI brain EEG currently pending. Moving all 4 extremity spontaneously. Objective Vital Signs Date Time Temp Pulse Resp B/P (MAP) Pulse Ox O2 Delivery O2 Flow Rate FiO2 08/06/17 09:04 99 35 08/06/17 09:04 Ventilator 08/06/17 06:00 87 08/06/17 04:00 98.2 16 123/66 (85) 08/05/17 15:05 15.00 Intake and Output 08/06/17 08/06/17 08/07/17 08:00 16:00 00:00 Intake Total 2278.2 ml Output Total 450 ml Balance 1828.2 ml Result Diagram: 08/06/17 0509 08/06/17 0509 Imaging Last Impressions Chest X-Ray 08/06/17 0000 Signed Impressions: Service Date/Time: Sunday, August 06, 2017 03:08 - CONCLUSION: 1. Endotracheal tube and nasogastric tube in good position. No new consolidation. Jac Gaspar MD Pelvis X-Ray 08/05/17 1505 Signed Impressions: Service Date/Time: Saturday, August 05, 2017 15:05 - CONCLUSION: 1. Questionable subtle avulsion fracture of the right inferior pubic ramus. Yung Gonzales MD Maxillofacial CT 08/05/17 1505 Signed Impressions: Service Date/Time: Saturday, August 05, 2017 15:19 - CONCLUSION: 1. Comminuted nasal bone fracture extending along the anterior nasal spine with suspected fracture of the bony nasal septum. 2. Large anterior mid face/scalp laceration. Yung Gonzales MD Head CT 08/05/17 1505 Signed Impressions: Service Date/Time: Saturday, August 05, 2017 15:19 - CONCLUSION: 1. No acute intracranial normality. Yung Gonzales MD Cervical Spine CT 08/05/17 1505 Signed Impressions: Service Date/Time: Saturday, August 05, 2017 15:22 - CONCLUSION: 1. No acute fracture or subluxation. 2. Degenerative spondylosis of the lower cervical spine, most prominently at C5-7. Yung Gonzales MD Abdomen/Pelvis CT 08/05/17 1505 Signed Impressions: Service Date/Time: Saturday, August 05, 2017 15:28 - CONCLUSION: 1. Very trace free fluid in the left lower quadrant adjacent the sigmoid colon. 2. Otherwise, no definitive traumatic injury in the abdomen or pelvis. 3. There is slight asymmetry of the colonic wall in the ascending near the hepatic flexure. This is nonspecific given degree of colonic distention. Consider colonoscopy on an outpatient basis particularly if patient has not had recent colonoscopy. Alternatively, repeat CT examination with oral contrast may be performed. Yung Gonzales MD Objective Remarks GENERAL: 53-year-old female currently orotracheally intubated with OG tube SKIN: Warm and dry. Lacerations and tissue to afford sutured along with nasal bridge. T-shaped laceration to forehead currently sutured HEAD: Normocephalic. EYES: Pupils equal and round about 4 mm bilaterally and reactive no scleral icterus. No injection or drainage. ENT: Drying blood in left external ear canal. Positive blood in nares bilaterally. Not actively bleeding. Orotracheally intubated with OG tube in place NECK: Trachea midline. No JVD. CARDIOVASCULAR: Regular rate and rhythm. S1, S2. No S4. RESPIRATORY: No accessory muscle use. Clear to auscultation. Breath sounds equal bilaterally. GASTROINTESTINAL: Abdomen soft, non-tender, nondistended. Hypoactive bowel sounds are appreciated MUSCULOSKELETAL: Extremities without significant peripheral edema. No obvious deformities. NEUROLOGICAL: Arousable on the ventilator moving all 4 extremities spontaneously but not to command. Urinary Catheter: Yes Assessment to: Continue Trivedi insert reason: Prolonged Immobilization Vascular Central Line Catheter: No Assessment to: Continue A/P Assessment and Plan Neuro/Psych: TBI Seizure disorder NOS EtOH Bony nasal septum fracture CT brain revealed bilateral maxillary sinusitis/ethmoid and frontal fluid levels. CT maxillofacial revealed comminuted nasal bone fracture on the anterior spine with fracture of the bony nasal septum Currently on propofol at 50 mcg/kg per minute/fentanyl 50 g an hour and midazolam drips as needed for sedation/analgesia while intubated Goal of RASS -2 Vitamin bag consisting of thiamine, folate and multivitamin daily 3 days Monitor for DT Acetaminophen 650 mg by 2 every 6 hours as needed fever Lorazepam 2 mg every hour as indicated for breakthrough seizures MRI brain ordered Neurology consultation Currently on levetiracetam 500 mg IV twice daily and phenytoin 200 mg twice daily. Check phenytoin level in a.m. Load with 1 g fosphenytoin in ED Facial laceration sutured in ED. Received tetanus toxoid 0.5 mg IM 1 CV: Currently on normal saline at 100 cc an hour Not requiring vasopressors and/or antihypertensives Resp: Acute respiratory failure [facility] 16/500/1/5/40 Ventilator bundle As needed albuterol aerosols every 2 hours as needed dyspnea Spontaneous breathing trials when clinically indicated GI: OGT to LIWS Pantoprazole for GI prophylaxis Docusate sodium/senna 1 tablet twice daily for bowel regimen : Trivedi catheter has been placed for accurate I's and O's in a critically ill patient Endo: Sliding scale insulin with Novulin R with Accu-Cheks every 6 hours to maintain euglycemia/low regimen Renal: Creatinine currently within normal limits Monitor urine output Accurate I's and O's Heme: Macrocytosis Leukocytosis Hemoglobin and coags within normal limits. Recheck CBC in a.m. ID: Monitor for infection Receive cefazolin 2 g IV 1 and ED MSK: PT evaluate and treat FEN: Hypocalcemia 1 g calcium gluconate IV 1 now. 40 mEq KCl by tube 1 now. 2 g mag sulfate IV 1 now. Recheck in a.m. Replace electrolytes per ICU electrolyte protocol Access -Utilize peripheral IV. Central line if indicated Prophylaxis - GI -pantoprazole -DVT -SCD/enoxaparin Level 2 follow-up Asim Ramirez MD Aug 06, 2017 09:49
[2017-08-06] MEDS ORDERED: DEXMEDETOMIDINE INJ 200 MCG in SODIUM CHLORIDE 0.9% INJ 50 ML IV PRN (10:00)
[2017-08-06] MEDS ORDERED: CALCIUM GLUCONATE INJ 1 GM in SODIUM CHLORIDE 0.9% INJ 100 ML IV ONE (10:00)
--- NOTE | 2017-08-06 11:20 | MB ---
cc: DENNIS NEW DATE OF CONSULTATION: 08/06/2017. ALSO KNOWN : Charley Greer. REASON FOR CONSULTATION: Evaluation of possible pelvic fracture. HISTORY OF PRESENT ILLNESS: 53-year-old female who was transferred from [facility]. Their chart reveals that she had a seizure and fell down a flight of stairs. She had a laceration to her forehead and showed evidence of altered mental status and confusion. She was emergently intubated in the field and transferred to [facility] for further evaluation. Imaging shows bilateral maxillary sinusitis, a comminuted nasal fracture, fracture of the nasal septum. X-rays of the hip show a possible pelvic rami on the right side. She is currently undergoing EEG evaluation of her seizure disorder. PAST MEDICAL HISTORY: Seizure disorder. PAST SURGICAL HISTORY: Unknown. MEDICATIONS: Unknown. ALLERGIES: Unknown. SOCIAL HISTORY: Unobtainable. REVIEW OF SYSTEMS: Limited at this point due to her condition. PHYSICAL EXAMINATION: GENERAL: This is a 53-year-old female. She is currently in the intensive care unit. HEAD, EYES, EARS, NOSE, THROAT: Normocephalic. There is trauma to her head with a laceration over the forehead. No scleral icterus. CHEST: Air entry bilaterally. HEART: Regular rate and rhythm. ABDOMEN: Abdomen soft and nontender. PELVIS: No signs of ecchymosis or laceration. EXTREMITIES: Bilateral intact dorsalis pedis pulses. No asymmetric calf swelling. RADIOLOGICAL STUDIES: X-rays of the pelvis questionable for a right-sided pelvic rami fracture. I reviewed the x-rays of the pelvis and also reviewed the CT scan. I do not see evidence of a clear definitive fracture. IMPRESSION: A 53-year-old with seizure disorder who fell down a flight of stairs, possible pelvic fracture on the right side, although no clear definitive CT evidence. PLAN: I would recommend the patient can be weightbearing as tolerated to the bilateral lower extremities. If she does have a subtle nondisplaced fracture, this would certainly be a stable injury to allow full weightbearing. MD SAWYER England/JOHNATHAN /11:04 AM /11:10 AM
--- NOTE | 2017-08-06 12:42 | MB ---
cc: ROSHAN PAGE M.D. DATE OF CONSULTATION: 08/06/2017. REASON FOR CONSULTATION: Seizure. HISTORY OF PRESENT ILLNESS: Ms. 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 She has not been on any anticonvulsants recently. Her significant other states that she has had some breakthrough seizures however. She is now admitted after she had a seizure while sitting at the top of stairs and then she therefore fell causing a head injury. She has since been loaded with Cerebyx and is on Keppra as well. She has had no recurrent seizures. PAST MEDICAL HISTORY: 1. She has a history of seizure disorder since age 11 from a head injury. 2. Her other past medical history is unknown. MEDICATIONS: Current medications are: 1. A multivitamin. 2. Keppra q. 12 hours 500 milligrams. 3. Fosphenytoin 200 milligrams q. 12 hours IV. 4. Ativan PRN. NEUROLOGICAL EXAMINATION: VITAL SIGNS: Blood pressure is 119/63, pulse 92, respirations 16, temperature 98.3 degrees. HIGHER CORTICAL FUNCTIONS: She is sedated and unresponsive. CRANIAL NERVES: Pupils 2 mm symmetric and reactive. Extraocular movements intact to dolls. MOTOR EXAM: No spontaneous limb movement. No posturing. REFLEXES: Symmetric. RADIOLOGICAL STUDIES: CT brain is normal intracranially. no acute change identified. MRI pending. CT cervical spine - no acute fracture. LABORATORY DATA: The white count is 12,000, hemoglobin 12.7, hematocrit 37% platelet count 157,000. Sodium is 140, potassium is 4, chloride is 104. The BUN is 9, creatinine 0.5, glucose is 95. Tox screen: alcohol level 188. Dilantin level today 17.7. PT 9.9, INR 1, APTT 23. IMPRESSION: Recurrent seizure with trauma. RECOMMENDATIONS: 1. Continue fosphenytoin and Keppra. 2. Will review the EEG and MRI. MD KAYCEE Piedra/JOHNATHAN /12:12 PM /12:34 PM
--- NOTE | 2017-08-06 13:08 | MG ---
cc: ROSHAN PAGE M.D. Lab No: [id number] Date: 08/06/2017 Age: Sex: F Race: TECHNIQUE: 17 channel EEG. DESCRIPTION: The background rhythm reveals slowing in the theta range at roughly 6 Hz. There is superimposed muscle artifact. There is beta activity as well which is probably medication effect. There are no lateralizing features seen and there are no epileptiform discharges present. Hyperventilation was not done. Photic stimulation was done in a stepwise fashion with no significant driving response. INTERPRETATION: Abnormal study consistent with a moderate encephalopathy. MD KAYCEE Piedra/JOHNATHAN /1:00 PM /1:03 PM
--- NOTE | 2017-08-06 13:53 | RADRPT ---
EXAM DATE/TIME: 08/06/2017 13:03 [facility] COMPARISON: CT BRAIN W/O CONTRAST, August 05, 2017, 15:19. INDICATIONS : Closed head injury. MEDICAL HISTORY : Seizures. Carcinoma, breast. SURGICAL HISTORY : Hysterectomy. Inguinal hernia repair. ENCOUNTER: Initial ACUITY: 1 day PAIN SCORE: 0/10 LOCATION: cranial TECHNIQUE: Multiplanar, multisequence MRI of the brain was performed without contrast. FINDINGS: CEREBRUM: The ventricles are normal for age. No evidence of midline shift, mass lesion, hemorrhage or acute in farction. No extraaxial fluid collections are seen. No focal susceptibility artifacts on the suscep tibility weighted sequence. The pituitary gland and suprasellar cistern are normal in configuration. WHITE MATTER: A few nonspecific small areas of T2 prolongation in the supratentorial white matter. POSTERIOR FOSSA: The cerebellum and brainstem are intact. The 4th ventricle is midline. The cerebellopontine angle is unremarkable. The cerebellar tonsils are normal in position. DIFFUSION IMAGING: No focal areas of restricted diffusion are seen. No evidence of acute infarction. EXTRACRANIAL: Prominent mucosal thickening in the maxillary and ethmoid sinuses. CONCLUSION: 1. No acute findings in the brain. 2. Bilateral maxillary and ethmoid sinus disease. Benjamin Dotson MD on August 06, 2017 at 13:49 Board Certified Radiologist. This report was verified electronically.
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
[2017-08-06] MEDS ORDERED: DEXMEDETOMIDINE INJ 1,000 MCG in SODIUM CHLOR 0.9% 250 ML INJ 240 ML IV PRN (15:30)
[2017-08-06] MEDS ORDERED: FLUMAZENIL 0.5 MG/5 ML VIAL IV PUSH PRN (17:00)
[2017-08-06] MEDS ORDERED: LORazepam 1 MG TAB PO PRN (17:00)
[2017-08-06] MEDS ORDERED: LORazepam 2 MG TAB PO PRN (17:00)
[2017-08-06] MEDS ORDERED: LORazepam 2 MG/ML VIAL IV PUSH PRN ×4 (17:00)
[2017-08-06] MEDS: ENOXAPARIN SODIUM 40 MG/0.4 ML SYRINGE SQ SCH (17:06)
[2017-08-06] MEDS ORDERED: oxyCODONE/ACETAMINOPHEN 5 MG/325 MG TAB PO PRN (22:45)
[2017-08-07] VITALS (10 sets, daily range): BP systolic 106–119; BP diastolic 53–58; PULSE 77–90; RESP 14–24; TEMP 97.5–98.9; O2SAT 93–95
[2017-08-07] MEDS: CHLORHEXIDINE GLUCONATE 2 % 1 PACK (2 CLOTHS) TOP SCH (01:40)
[2017-08-07] MEDS: ARTIFICIAL TEARS OPTH SOLN 15 ML BTL EACH EYE SCH (04:09)
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
[2017-08-07] MEDS: ACETAMINOPHEN/HYDROcodone 325 MG/5 MG TAB PO PRN ×3 (05:36→21:36)
[2017-08-07 06:02] LABS: HEMATOCRIT 32.9 % (35.0-46.0); HEMOGLOBIN 11.2 GM/DL (11.6-15.3); MEAN CELL VOLUME 102.8 FL (80.0-100.0); MEAN CORPUSCULAR HEMOGLOBIN 35.1 PG (27.0-34.0); MEAN CORPUSCULAR HGB CONC 34.1 % (32.0-36.0); MEAN PLATELET VOLUME 8.9 FL (7.0-11.0); PLATELET COUNT 152 TH/MM3 (150-450); RED CELL DISTRIBUTION WIDTH 14.8 % (11.6-17.2); WHITE BLOOD COUNT 10.6 TH/MM3 (4.0-11.0)
--- NOTE | 2017-08-07 06:05 | RADRPT ---
EXAM DATE/TIME: 08/07/2017 04:36 [place] COMPARISON: CHEST SINGLE AP, August 06, 2017, 3:08. INDICATIONS : Shortness of breath. MEDICAL HISTORY : None. SURGICAL HISTORY : None. ENCOUNTER: Subsequent ACUITY: 3 days PAIN SCORE: 0/10 LOCATION: Bilateral chest TECH NOTE: CHAITANYA QUISPE MR#[id number] :63 Exam date/desc:August 07, 2017CHEST SINGLE AP FINDINGS: 2 AP portable semierect views of the chest were obtained and demonstrate that the patient has been ex tubated the nasogastric tube has been removed. There are no confluent infiltrates or effusions. The c ardiomediastinal structures remain within normal limits. There are overlying electrocardiogram leads. The bony thorax is intact. CONCLUSION: 1. Interval extubation and removal of nasogastric tube. 2. The lungs remain clear. Lauro Mehta MD on August 07, 2017 at 6:02 Board Certified Radiologist. This report was verified electronically.
[2017-08-07 06:24] LABS: BICARBONATE 27.6 MEQ/L (21.0-32.0); CALCIUM 7.9 MG/DL (8.5-10.1); CREATININE 0.46 MG/DL (0.50-1.00); MAGNESIUM 2.3 MG/DL (1.5-2.5)
[2017-08-07 06:26] LABS: PHOSPHORUS 2.6 MG/DL (2.5-4.9)
[2017-08-07] MEDS: MULTIVITAMIN INJ 10 ML, THIAMINE INJ 100 MG, FOLIC ACID INJ 1 MG in SODIUM CHLORID 0.9%... IV SCH ×2 (09:00→11:55)
[2017-08-07] MEDS: MAGNESIUM HYDROXIDE SUSP 30 ML CUP PO SCH ×2 (09:21→21:35)
[2017-08-07] MEDS: levETIRAcetam INJ 500 MG in SODIUM CHLORIDE 0.9% INJ 100 ML IV SCH ×2 (09:21→21:37)
[2017-08-07] MEDS: FOSPHENYTOIN SODIUM 100 MG PE/2 ML VIAL IV SCH ×2 (09:24→21:36)
[2017-08-07] MEDS: DOCUSATE SODIUM 50 MG/SENNA 8.6 MG TAB PO SCH ×2 (09:25→21:36)
[2017-08-07] MEDS: PANTOPRAZOLE SOD 40 MG DELAYED RELEASE TAB PO SCH (09:25)
[2017-08-07] MEDS ORDERED: PNEUMOCOCCAL POLYVALENT INJ 25 MCG/0.5 ML SYR IM ONE (10:00)
[2017-08-07] MEDS ORDERED: INFLUENZA VIRUS VACCINE (QUADRIVALENT) 0.5 ML SYR IM ONE (10:00)
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
[2017-08-07] MEDS: ENOXAPARIN SODIUM 40 MG/0.4 ML SYRINGE SQ SCH (17:44)
--- NOTE | 2017-08-07 21:55 | HHI.PR ---
Review/Management Diagnosis seizures--stable Plan change cerebyx to po dilantin and keppra to po Ok from neurologic standpoint to discharge home tomorrow if stable No driving for 6 months No ETOH follow up with me in my office in 3 weeks Diagnosis/Plan: Subjective Subjective Comments No acute events reported No further seizures Active Medications Current Medications Medications (Trade) Dose Ordered Sig/Chan Route Start Time Stop Time Status Last Admin (Narcan Inj) 0.4 mg UNSCH PRN IV PUSH 08/05/17 16:00 (Lovenox Inj) 40 mg Q24H SQ 08/05/17 16:00 08/07/17 17:44 Levetriacetam 500 mg/Sodium Chloride 105 ml @ 420 mls/hr Q12HR IV 08/05/17 21:00 08/07/17 21:37 (Cerebyx Inj) 200 mgpe Q12HR IV 08/05/17 21:00 08/07/17 21:36 (Lesia-Colace) 1 tab BID PO 08/05/17 21:00 08/07/17 21:36 (Milk Of Tosin Liq) 30 ml BID PO 08/05/17 21:00 08/07/17 21:35 Multivitamins 10 ml/Thiamine HCl 100 mg/Folic Acid 1 mg/Sodium Chloride 511.2 ml @ 125 mls/hr DAILY IV 08/06/17 09:00 08/08/17 08:59 08/07/17 09:00 (Tylenol) 650 mg Q6H PRN PO 08/05/17 19:30 08/07/17 01:40 (Zofran Inj) 4 mg Q6H PRN IV PUSH 08/05/17 19:30 (Albuterol Neb) 2.5 mg Q2HR NEB PRN INH 08/05/17 19:30 08/06/17 09:02 (Romazicon Inj) 0.2 mg Q1M PRN IV PUSH 08/06/17 17:00 (Ativan) 1 mg Q4H PRN PO 08/06/17 17:00 ([place] 5-325 Mg) 1 tab Q6H PRN PO 08/07/17 04:45 08/07/17 12:43 ([place] 5-325 Mg) 2 tab Q6H PRN PO 08/07/17 04:45 08/07/17 21:36 (Vitamin B1) 100 mg DAILY PO 08/09/17 09:00 (Protonix) 40 mg DAILY PO 08/07/17 09:00 08/07/17 09:25 Allergies Allergies Coded Allergies codeine (Verified Allergy, Unknown, shortness of breath, 08/06/17) Exam I&O / VS 08/07/17 08/07/17 08/08/17 15:00 23:00 07:00 Intake Total 240 ml Balance 240 ml Intake Oral 240 ml # Voids 3 Vital Signs Date Time Temp Pulse Resp B/P (MAP) Pulse Ox O2 Delivery O2 Flow Rate FiO2 08/07/17 16:21 98.9 80 18 116/56 (76) 94 08/07/17 12:00 84 08/07/17 12:00 98.5 87 24 110/58 (75) 95 08/07/17 10:00 84 08/07/17 08:13 94 21 08/07/17 08:00 97.5 84 18 119/58 (78) 94 08/07/17 08:00 84 08/07/17 07:00 93 Room Air 08/07/17 06:00 84 08/07/17 04:00 77 08/07/17 04:00 97.9 77 14 107/55 (72) 93 08/07/17 02:00 82 08/07/17 00:00 98.2 86 16 110/58 (75) 95 08/07/17 00:00 82 08/06/17 22:00 82 Exam Comments alert, speech normal Cn intact MOTOR--5/5 BUE Objective Radiology Results MRI brain normal Micro and Labs Laboratory Tests Test 08/07/17 05:25 White Blood Count 10.6 Red Blood Count 3.20 Hemoglobin 11.2 Hematocrit 32.9 Mean Corpuscular Volume 102.8 Mean Corpuscular Hemoglobin 35.1 Mean Corpuscular Hemoglobin Concent 34.1 Red Cell Distribution Width 14.8 Platelet Count 152 Mean Platelet Volume 8.9 Blood Urea Nitrogen 4 Creatinine 0.46 Random Glucose 81 Calcium Level 7.9 Phosphorus Level 2.6 Magnesium Level 2.3 Sodium Level 140 Potassium Level 4.0 Chloride Level 106 Carbon Dioxide Level 27.6 Anion Gap 6 Estimat Glomerular Filtration Rate 142 Phenytoin (Dilantin) Level 18.0 Jerad Christian MD PhD Aug 07, 2017 21:55
[2017-08-08] VITALS (9 sets, daily range): BP systolic 112–139; BP diastolic 55–66; PULSE 77–100; RESP 16–20; TEMP 98–99.8; O2SAT 94–98
[2017-08-08] MEDS: ACETAMINOPHEN/HYDROcodone 325 MG/5 MG TAB PO PRN ×4 (03:49→22:50)
[2017-08-08 06:57] LABS: HEMATOCRIT 34.3 % (35.0-46.0); MEAN CELL VOLUME 100.9 FL (80.0-100.0); MEAN CORPUSCULAR HEMOGLOBIN 35.3 PG (27.0-34.0); MEAN PLATELET VOLUME 8.5 FL (7.0-11.0); PLATELET COUNT 171 TH/MM3 (150-450); RED CELL DISTRIBUTION WIDTH 14.4 % (11.6-17.2); WHITE BLOOD COUNT 12.4 TH/MM3 (4.0-11.0)
[2017-08-08 07:31] LABS: CALCIUM 8.1 MG/DL (8.5-10.1); CREATININE 0.51 MG/DL (0.50-1.00)
[2017-08-08] MEDS: PHENYTOIN SODIUM 100 MG CAP PO SCH ×2 (09:30→22:49)
[2017-08-08] MEDS: PANTOPRAZOLE SOD 40 MG DELAYED RELEASE TAB PO SCH (09:30)
[2017-08-08] MEDS: DOCUSATE SODIUM 50 MG/SENNA 8.6 MG TAB PO SCH ×2 (09:31→22:49)
[2017-08-08] MEDS: levETIRAcetam 500 MG TAB PO SCH ×2 (09:31→22:49)
[2017-08-08] MEDS: MAGNESIUM HYDROXIDE SUSP 30 ML CUP PO SCH ×2 (09:32→22:50)
--- NOTE | 2017-08-08 16:52 | HHI.CCPN ---
Subjective Brief History [place]: This is a 52-year-old female who was drinking alcohol (ETOH = 188) and fell down the set of stairs and possibly had a seizure at the time. Patient was brought in this priority 2 trauma alert. She was intubated and ventilated in the field due to decreased level of consciousness Patient underwent full workup was found to have no intracranial hemorrhage or brain injury he had significant head laceration and history of frequent untreated seizures. INJURIES Laceration to forehead (30 sutures) Nasal bone fx / nasal septum (4 sutures) ? Avulsion fx of RIGHT inferior pubic ramus (Ortho says no fracture) PMHx: Seizure. ETOH 24 Hour Review/Hospital Course 08/06/2017 Patient has been stable for the last 18 hours. She is intubated and ventilated On propofol/fentanyl Keppra and Cerebyx Hemodynamically she is stable Bilateral breath sounds ventilatory supported on assist control ventilation In face of absent chest injuries or head injury patient will be extubated after MRI of the head was performed Abdomen soft active bowel sounds Plan EEG/MRI brain Neurology consult by Dr. Christian is greatly appreciated 08/07/2017 PTD: 2 Extubated without incident yesterday. Pt is on room air. Pt is OOB in a recliner chair. No distress noted. A&O x 3. Plan for transfer to med/surg floor when bed available. 08/08/2017 PTD: 3 Patient lying in bed. No distress noted. Family at bedside. Patient states, "I have a headache and dizzy. They said I can have Tylenol, because I have a fever" "When do I get to go home?" (Alcira Cueva) Objective Vital Signs Date Time Temp Pulse Resp B/P (MAP) Pulse Ox O2 Delivery O2 Flow Rate FiO2 08/08/17 16:00 98.1 82 16 119/66 (83) 97 08/07/17 08:13 21 08/07/17 07:00 Room Air 08/06/17 19:00 6.00 Intake and Output 08/08/17 08/08/17 08/08/17 07:59 15:59 23:59 Intake Total 240 ml Balance 240 ml (Alcira Cueva) Result Diagram: 08/08/17 0626 08/08/17 0626 Objective Remarks GENERAL: This is a 52 year old female lying in bed. No distress noted. SKIN: Warm and dry. HEAD: Normocephalic. Sutures in place to forehead. PERCY. No S/S of infection. EYES: PERRLA. Slight bilateral swelling to eyes. ENT: No nasal bleeding or discharge. Mucous membranes pink and moist. NECK: Trachea midline. No JVD. CARDIOVASCULAR: Regular rate and rhythm. RESPIRATORY: Room air. No accessory muscle use. Lungs are clear to auscultation. Breath sounds equal bilaterally. No distress or dyspnea. GASTROINTESTINAL: BS + x 4 quads. Abdomen soft, non-tender, nondistended. MUSCULOSKELETAL: Extremities without cyanosis, or edema. + peripheral pulses x 4 extremities. Warm with good capillary refill and sensation. MAEW. NEUROLOGICAL: Awake and alert. Normal speech and pattern. (Alcira Cueva) Urinary Catheter Assessment Urinary Catheter: No (Alcira Cueva) Vascular Central Line Catheter Vascular Central Line Catheter: No (Alcira Cueva) Assessment and Plan Assessment: (1) Nasal bone fx-closed ICD Code: S02.2XXA - Fracture of nasal bones, initial encounter for closed fracture (2) Closed head injury ICD Code: S09.90XA - Unspecified injury of head, initial encounter Status: Acute (3) Laceration of forehead ICD Code: S01.81XA - Laceration without foreign body of other part of head, initial encounter Status: Acute Plan [place]: This is a 52-year-old female who sustained a fall. She was drinking. EtOH 188. She had a seizure, then fell down the stairs. GCS 12. Combative. She was intubated in the field. She was a trauma transfer from [facility]. INJURIES: Laceration to forehead (30 sutures) Nasal bone fx / nasal septum (4 sutures) ? Avulsion fx of RIGHT inferior pubic ramus (Ortho says no fracture) PMHx: Seizure. ETOH. Procedures: 08/05: Intubated in the field 08/06: Extubated Consults: [facility]. Neurology. Orthopedics. OMFS. Case management. Diet: Regular diet. Tolerating po diet. Encourage good po intake with each meal. Seizure precautions. Keppra 500 mg BID. Cerebyx DC'd. Dilantin 200 mg BID. Neurology following and adjusting meds. EEG negative. MRI brain with no acute findings. Pulmonary: Encourage good pulmonary toileting. IS at bedside and pt encouraged to use. Rationale for use explained to patient, and verbalized understanding. Patient remains on room air. No distress noted. PAIN Management: [place] 5-10 mg q 6h. Activity: OOB. PT and OT ordered. (WBAT RLE) GI prophylaxis: Protonix 40 mg po Bowel regimen: Lesia-colace. MOM. LBM: 0. DVT prophylaxis: Mechanical VTE with SCDs. Chemical management with Lovenox 40 mg QD SQ. DC Planning: Case management consulted for assistance with final discharge disposition. Emotional support provided to patient and family at bedside and plan of care discussed. Discussed with RN at bedside. Discussed pt condition and plan of care with collaborating trauma surgeon. Patient is hemodynamically stable in the ICU, therefore she can be transferred to the med/surg floor once a bed becomes available.. The trauma team will round each day, and evaluate plan of care on a daily basis. Laceration to forehead (30 sutures) Nasal bone fx / nasal septum (4 sutures) Sutures placed in ED Wash gently twice a day with soap and water. Pat dry. Leave open to air OMFS consulted Dr Winn has evaluated the patient feels that the reduction of the nasal fracture would be appropriate. Plan is for Monday (However, if the patient is discharged, he would like the patient to follow-up in his clinic on Monday.) ? Avulsion fx of RIGHT inferior pubic ramus Orthopedics consulted and assisting in management care Dr. Andrews does not believe patient has a fracture Supportive care Pain management PT and OT ordered WBAT RLE Encourage out of bed Seizures EtOH Neurology consulted and assisting in management and care Seizure precautions Supportive care 08/05: EEG - No seizures 08/05: MRI brain - NO ACUTE FINDINGS Keppra 500 mg BID DC'd Cerebyx Dilantin 200 mg BID Ativan 1 mg q 4 H for agitation or seizures as needed Multivitamins Neurology feels she will safe to discharge home tomorrow (Alcira Cueva) Remarks Patient seen and examined with the nurse practitioner, overall stable, transferred to the floor (Natalia Griffith MD) Problem Qualifiers (1) Nasal bone fx-closed: Qualified Codes: S02.2XXA - Fracture of nasal bones, initial encounter for closed fracture (2) Closed head injury: Qualified Codes: S09.90XA - Unspecified injury of head, initial encounter (3) Laceration of forehead: Qualified Codes: S01.81XA - Laceration without foreign body of other part of head, initial encounter Alcira Cueva Aug 08, 2017 16:52 Natalia Griffith MD Aug 08, 2017 18:49
[2017-08-08] MEDS ORDERED: MAGN30S PO (16:56)
[2017-08-08] MEDS ORDERED: PERI PO (16:56)
[2017-08-08] MEDS: ENOXAPARIN SODIUM 40 MG/0.4 ML SYRINGE SQ SCH (17:24)
[2017-08-09] VITALS: BP 122/58; PULSE 82; RESP 18; TEMP 98.2; O2SAT 98
[2017-08-09 04:00] VITALS: BP 139/71; PULSE 87; RESP 15; TEMP 98.6; O2SAT 98
[2017-08-09] MEDS: ACETAMINOPHEN/HYDROcodone 325 MG/5 MG TAB PO PRN ×2 (06:38→11:54)
[2017-08-09] MEDS ORDERED: WALKER WHEELS/F1 MIS (07:45)
[2017-08-09] MEDS ORDERED: HYDR-3516 PO (07:45)
[2017-08-09] MEDS ORDERED: LEVE500 PO (07:46)
[2017-08-09] MEDS ORDERED: DILA100C PO (07:46)
[2017-08-09 08:00] VITALS: BP 138/85; PULSE 76; RESP 18; TEMP 98; O2SAT 98
[2017-08-09] MEDS: DOCUSATE SODIUM 50 MG/SENNA 8.6 MG TAB PO SCH (08:23)
[2017-08-09] MEDS: PHENYTOIN SODIUM 100 MG CAP PO SCH (08:23)
[2017-08-09] MEDS: PANTOPRAZOLE SOD 40 MG DELAYED RELEASE TAB PO SCH (08:23)
[2017-08-09] MEDS: MAGNESIUM HYDROXIDE SUSP 30 ML CUP PO SCH (08:23)
[2017-08-09] MEDS: levETIRAcetam 500 MG TAB PO SCH (08:23)
[2017-08-09] MEDS ORDERED: THIAMINE HCL 100 MG TAB PO SCH (09:00)
[2017-08-09 12:00] VITALS: BP 129/58; PULSE 84; RESP 19; TEMP 97.9; O2SAT 95
--- NOTE | 2017-08-09 19:25 | HHI.DS ---
Discharge Summary Admission Date Aug 05, 2017 at 15:36 Discharge Date: Aug 09, 2017 Admitting Diagnosis closed head injury, laceration, trauma alert (1) Facial laceration ICD Codes: S01.81XA - Laceration without foreign body of other part of head, initial encounter (2) Fall, initial encounter ICD Codes: W19.XXXA - Unspecified fall, initial encounter Diagnosis: Principal (3) Seizure ICD Codes: R56.9 - Unspecified convulsions (4) Nasal bone fx-closed ICD Codes: S02.2XXA - Fracture of nasal bones, initial encounter for closed fracture Brief History S/P Trauma: Fall CBC/BMP: 08/08/17 0626 08/08/17 0626 Significant Findings Laboratory Tests Test 08/07/17 05:25 08/08/17 06:26 Red Blood Count 3.20 MIL/MM3 (4.00-5.30) 3.40 MIL/MM3 (4.00-5.30) Hemoglobin 11.2 GM/DL (11.6-15.3) Hematocrit 32.9 % (35.0-46.0) 34.3 % (35.0-46.0) Mean Corpuscular Volume 102.8 FL (80.0-100.0) 100.9 FL (80.0-100.0) Mean Corpuscular Hemoglobin 35.1 PG (27.0-34.0) 35.3 PG (27.0-34.0) Blood Urea Nitrogen 4 MG/DL (7-18) 4 MG/DL (7-18) Creatinine 0.46 MG/DL (0.50-1.00) Calcium Level 7.9 MG/DL (8.5-10.1) 8.1 MG/DL (8.5-10.1) White Blood Count 12.4 TH/MM3 (4.0-11.0) Imaging Last Impressions Chest X-Ray 08/07/17 0600 Signed Impressions: Service Date/Time: Monday, August 07, 2017 04:36 - CONCLUSION: 1. Interval extubation and removal of nasogastric tube. 2. The lungs remain clear. Lauro Mehta MD Brain MRI 08/06/17 0000 Signed Impressions: Service Date/Time: Sunday, August 06, 2017 13:03 - CONCLUSION: 1. No acute findings in the brain. 2. Bilateral maxillary and ethmoid sinus disease. Benjamin Dotson MD Pelvis X-Ray 08/05/17 1505 Signed Impressions: Service Date/Time: Saturday, August 05, 2017 15:05 - CONCLUSION: 1. Questionable subtle avulsion fracture of the right inferior pubic ramus. Yung Gonzales MD Maxillofacial CT 08/05/17 1505 Signed Impressions: Service Date/Time: Saturday, August 05, 2017 15:19 - CONCLUSION: 1. Comminuted nasal bone fracture extending along the anterior nasal spine with suspected fracture of the bony nasal septum. 2. Large anterior mid face/scalp laceration. Yung Gonzales MD Head CT 08/05/17 1505 Signed Impressions: Service Date/Time: Saturday, August 05, 2017 15:19 - CONCLUSION: 1. No acute intracranial normality. Yung Gonzales MD Cervical Spine CT 08/05/17 1505 Signed Impressions: Service Date/Time: Saturday, August 05, 2017 15:22 - CONCLUSION: 1. No acute fracture or subluxation. 2. Degenerative spondylosis of the lower cervical spine, most prominently at C5-7. Yung Gonzales MD Abdomen/Pelvis CT 08/05/17 1505 Signed Impressions: Service Date/Time: Saturday, August 05, 2017 15:28 - CONCLUSION: 1. Very trace free fluid in the left lower quadrant adjacent the sigmoid colon. 2. Otherwise, no definitive traumatic injury in the abdomen or pelvis. 3. There is slight asymmetry of the colonic wall in the ascending near the hepatic flexure. This is nonspecific given degree of colonic distention. Consider colonoscopy on an outpatient basis particularly if patient has not had recent colonoscopy. Alternatively, repeat CT examination with oral contrast may be performed. Yung Gonzales MD PE at Discharge GENERAL: 52 year old well-nourished female lying in bed. SKIN: Warm and dry. Sutures to forehead well approximated. HEAD:Normocephalic. ENT: No nasal bleeding or discharge. Mucous membranes pink and moist. NECK: Trachea midline. No JVD. CARDIOVASCULAR: Regular rate and rhythm. RESPIRATORY: No accessory muscle use. Clear to auscultation. Breath sounds equal bilaterally. GASTROINTESTINAL: Abdomen soft, non-tender, nondistended. + BS MUSCULOSKELETAL: Extremities without cyanosis, or edema. MAEW, + perfused NEUROLOGICAL: Awake and alert. Normal speech. Hospital Course [facility]: Patient was drinking alcohol, had a seizure and fell down 5 stairs. GCS = 12. Combative. Intubated in the field. Transferred for trauma services. INJURIES Laceration to forehead Nasal bone fx ?Avulsion fx of RIGHT inferior pubic ramus PMHx: Seizure. ETOH abuse Laceration to forehead Supportive care Suture removal today Wound care: Cleanse wound daily with soap and water. Leave open to air Nasal bone fx OMFS consulted F/U outpatient for nasal repair ?Avulsion fx of RIGHT inferior pubic ramus Orthopedics consulted Non-op Pain control WBAT RLE Seizures Neurology consulted, F/U outpatient 08/05: EEG negative for seizures Keppra 500 mg BID Dilantin 200 mg BID Respiratory failure Supportive care 08/05: Intubated 08/06: Extubated No acute distress 08/07: CXR shows no acute dx Plan of care d/w patient at bedside. F/U with PCP in 1 week Patient is clear from Trauma surgery standpoint to safely DC home. Pt Condition on Discharge: Stable Discharge Disposition: Discharge Home Discharge Instructions DIET: Follow Instructions for: As Tolerated, No Restrictions Activities you can perform: Weight Bearing as [place] Other Activity Instructions: Weight bearing as tolerated right leg Jenni Singh Aug 09, 2017 19:25
[2017-08-14] MEDS ORDERED: XOPEAER4 INH (11:57)
== END 2017-08-09 12:45 | disposition home or self-care (01) | DRG 154 ==
LOC: NEPI 15:03 → EDBD 15:36 → NEDA 15:36 → N03B 16:21
PROVIDERS: ADMIT Surgery; ATTEND Surgery
PROC: 0HQ0XZZ Repair Scalp Skin, External Approach (ICD-10-PCS; principal; 2017-08-05)
PROC: 5A1945Z Respiratory Ventilation, 24-96 Consecutive Hours (ICD-10-PCS; 2017-08-05)
DX: S02.2XXA Fracture of nasal bones, initial encounter for closed fracture (principal); J96.00 Acute respiratory failure, unspecified whether with hypoxia or hypercapnia; G93.40 Encephalopathy, unspecified; S32.591A Other specified fracture of right pubis, initial encounter for closed fracture; R18.8 Other ascites; S01.81XA Laceration without foreign body of other part of head, initial encounter; E83.51 Hypocalcemia; D72.829 Elevated white blood cell count, unspecified; D75.89 Other specified diseases of blood and blood-forming organs; G40.909 Epilepsy, unspecified, not intractable, without status epilepticus; R40.2421 Glasgow coma scale score 9-12, in the field [EMT or ambulance]; J32.0 Chronic maxillary sinusitis; M47.892 Other spondylosis, cervical region; R50.9 Fever, unspecified; F10.129 Alcohol abuse with intoxication, unspecified; W10.9XXA Fall (on) (from) unspecified stairs and steps, initial encounter; Y90.6 Blood alcohol level of 120-199 mg/100 ml; Z23 Encounter for immunization; Z87.820 Personal history of traumatic brain injury
CPT/HCPCS: 12015; 31500; 36600; 43752; 51702; 70450; 70486; 70551; 71045; 72125; 72170; 74177; 80048; 80185; 80307; 81001; 82805; 83735; 84100; 84155; 85025; 85027; 85610; 85730; 86850; 86900; 86901; 90471; 90686; 90732; 94002; 94003; 94150; 94640; 94664; 95819; 96374; 96375; 99291; C9113; G0390; J0610; J0690; J1650; J1953; J2250; J3010; J3411; J3475; J7030; J7040; J7613; Q2009; Q2038; Q9967

== ENCOUNTER → 2017-08-14 | Day surgery (SDC) | payer SELFPAY ==
[~2017-08-14] VITALS: Ht 165.1 cm; Wt 51.9 kg
[~2017-08-14] MED LIST: BUPIVACAINE HCL PF 0.5% 30 ML VIAL ONE; BUPIVACAINE/EPINEPHRINE 0.25% 50 ML VIAL ONE; BUPIVACAINE/EPINEPHRINE 0.25% PF 10 ML VIAL ONE; CHLORHEXIDINE GLUCONATE 2 % 1 PACK (2 CLOTHS) TOPICAL PRN; DEXAMETHASONE SOD PHOS 4 MG/ML VIAL IV ONE; DILA100C PO; GLYCOPYRROLATE 1 MG/5 ML SYRINGE IV PUSH ONE; HYDR-3516 PO; LABETALOL HCL 100 MG/20 ML VIAL IV ONE; LACTATED RINGER'S 1000 ML IV PRN; LEVE500 PO; LIDOCAINE HCL 1% PF 5 ML SYRINGE OTHER ONE; MAGN30S PO; METOPROLOL TARTRATE 25 MG TAB PO PRN; NEOSTIGMINE 5 MG/5 ML SYRINGE IV PUSH ONE; ONDANSETRON HCL 4 MG/2 ML VIAL IV ONE; OXYMETAZOLINE HCL 0.05% 15 ML NASAL SPRAY ONE; PERI PO; POVIDONE IODINE 5% (ANTISEPSIS KIT) 4 APPLICATIONS EACH NARE PRN; ROCURONIUM INJ 50 MG/5 ML SYRINGE IV PUSH ONE; SODIUM CHLORID 0.9% 500 ML IV PRN; WALKER WHEELS/F1 MIS; XOPEAER4 INH; ceFAZolin 1,000 MG/NS 100 ML IV SCH; oxyCODONE/ACETAMINOPHEN 5 MG/325 MG TAB PO PRN
[2017-08-14 12:02] LABS: AUTOMATED NEUTROPHIL # 5.7 TH/MM3 (1.8-7.7); BASOPHIL # 0.1 TH/MM3 (0-0.2); BASOPHIL % 0.8 % (0.0-2.0); EOSINOPHIL # 0.8 TH/MM3 (0-0.4); EOSINOPHIL % 8.5 % (0.0-4.0); HEMOGLOBIN 13.7 GM/DL (11.6-15.3); LYMPH % 24.3 % (9.0-44.0); LYMPHOCYTE # 2.4 TH/MM3 (1.0-4.8); MEAN CELL VOLUME 102.8 FL (80.0-100.0); MEAN CORPUSCULAR HEMOGLOBIN 35.4 PG (27.0-34.0); MEAN CORPUSCULAR HGB CONC 34.4 % (32.0-36.0); MEAN PLATELET VOLUME 7.3 FL (7.0-11.0); MONOCYTE # 0.8 TH/MM3 (0-0.9); NEUT % 58.4 % (16.0-70.0); PLATELET COUNT 394 TH/MM3 (150-450); RED BLOOD COUNT 3.89 MIL/MM3 (4.00-5.30); RED CELL DISTRIBUTION WIDTH 15.2 % (11.6-17.2); WHITE BLOOD COUNT 9.7 TH/MM3 (4.0-11.0)
[2017-08-14 15:15] VITALS: BP 153/70; PULSE 84; RESP 18; TEMP 98.4; O2SAT 92
--- NOTE | 2017-08-18 20:11 | PD.OP ---
Operative Report Date of Surgery: Sep 11, 2017 Preoperative Diagnosis: (1) Nasal bone fx-closed Postoperative Diagnosis: (1) Nasal bone fx-closed Procedure: Closed reduction of nasal bone fracture (42832) Surgeon: Jerry Garcia Mdm Developer(s): . Operation and Findings: Patient is a 52-year-old female presented to clinic with a nasal bone fracture sustained after a fall downstairs. Risks benefits and alternative treatments were discussed. All questions answered. Patient expressed understanding. Patient elected to assume the risks of closed reduction of nasal fracture. Informed consent obtained. The surgical site was marked in the preoperative holding bay. Patient was taken to the operating room. All pressure points were padded. A surgical timeout was performed. After smooth induction of general anesthesia, Afrin-soaked nasal pledgets were placed inside the nose. Quarter percent Marcaine with epinephrine was then instilled into the surgical site. The nasal pledgets were removed. A throat pack was placed. The [place] elevator was then used to reduce the nasal bone fragments. The throat pack was removed. An external nasal splint was fashioned. The patient was awoken from anesthesia and arrived stable and doing well to the PACU. All needle sponge and management count's were correct 2. Jerry Garcia MD Aug 18, 2017 20:11
== END | disposition home or self-care (01) ==
LOC: HSDC 10:56
PROVIDERS: ATTEND Student in an Organized Health Care Education/Training Program
DX: S02.2XXA Fracture of nasal bones, initial encounter for closed fracture (principal); W10.9XXA Fall (on) (from) unspecified stairs and steps, initial encounter; Y92.018 Other place in single-family (private) house as the place of occurrence of the external cause; F17.200 Nicotine dependence, unspecified, uncomplicated; G40.909 Epilepsy, unspecified, not intractable, without status epilepticus; Z01.818 Encounter for other preprocedural examination
CPT/HCPCS: 00160; 21320; 85025; J0690; J1100; J2405; J2710; J3010; J7120